=== PATIENT | female | born 1945 | race Hispanic/Latino ===

== ENCOUNTER → 2023-03-06 | Outpatient (CLI) | payer MEDICARE | END | disposition home or self-care (01) | LOC: SHCH 08:04 | PROVIDERS: ATTEND Student in an Organized Health Care Education/Training Program | DX: I34.0 Nonrheumatic mitral (valve) insufficiency (principal); I48.0 Paroxysmal atrial fibrillation; I10 Essential (primary) hypertension; E78.5 Hyperlipidemia, unspecified | CPT/HCPCS: 93306 ==

== ENCOUNTER → 2023-05-12 | Outpatient (CLI) | payer MEDICARE ==
[~2023-05-12] MED LIST: REGADENOSON 0.4 MG/5 ML PF SYG IVP ONE
== END | disposition home or self-care (01) ==
LOC: SHCH 08:59
PROVIDERS: ATTEND Student in an Organized Health Care Education/Training Program
DX: I48.91 Unspecified atrial fibrillation (principal); I50.22 Chronic systolic (congestive) heart failure
CPT/HCPCS: 78452; 96374; 93017; J2785; A9500 ×2

== ENCOUNTER → 2024-04-08 | Outpatient (CLI) | payer MEDICARE | END | disposition home or self-care (01) | LOC: SHCH 13:38 | PROVIDERS: ATTEND Student in an Organized Health Care Education/Training Program | DX: R53.83 Other fatigue (principal) | CPT/HCPCS: 93306 ==

== ENCOUNTER 2025-09-11 08:50 | Inpatient (IN) | payer MEDICARE, MEDICAID ==
[~2025-09-11] VITALS: Ht 157.5 cm; Wt 72.8 kg
[2025-09-11 09:18] LABS: IMMATURE GRANULOCYTE ABSOLUTE 0.05 K/uL (0-1); NUCLEATED RED BLOOD CELLS 0.0 % (0.0-0.19); PLATELET COUNT (AUTO) 390 K/uL (130-400); RED BLOOD CELL COUNT(AUTO) 4.29 MIL/uL (4.00-5.50); RED CELL DISTRIBUTION WIDTH 12.8 % (11.0-15.5); WHITE BLOOD COUNT (AUTO) 8.2 K/uL (4.8-10.8)
[2025-09-11 09:27] LABS: CREATININE 1.3 mg/dL (0.5-1.0); GLOMERULAR FILTR. RATE CALC 42.0 mL/min (>90); GLUCOSE,RANDOM 151.0 mg/dL (70-105); SODIUM SERUM 141.0 mmol/L (136-145); UREA NITROGEN, BLOOD 22.0 mg/dL (7-18)
[2025-09-11 09:31] LABS: ASPARTATE AMINOTRANSFERASE 17.0 U/L (10-37); CREATINE KINASE, TOTAL 31.0 U/L (21-232); TOTAL PROTEIN, SERUM 8.7 g/dL (6.0-8.3)
--- NOTE | 2025-09-11 09:55 | HMCIMG ---
EXAM: CT Abdomen and Pelvis Without IV contrast CLINICAL HISTORY: diffuse abdominal pain TECHNIQUE: Axial computed tomography images of the abdomen and pelvis without intravenous contrast. CONTRAST: No IV contrast. COMPARISON: None provided. FINDINGS: LUNG BASES: The lung bases appear clear. No pleural effusions are seen. LIVER: Unremarkable. GALLBLADDER AND BILE DUCTS: Cholecystectomy. PANCREAS: Unremarkable. SPLEEN: Unremarkable. ADRENAL GLANDS: Unremarkable. KIDNEYS, URETERS, AND BLADDER: Massive distention of the urinary bladder. Gas within urinary bladder could be related to recent instrumentation or infection. Correlate clinically. STOMACH AND BOWEL: Mild inflammatory changes about distal sigmoid colon could be related to sigmoid diverticulitis. Correlate clinically. APPENDIX: No evidence of acute appendicitis on CT examination. PERITONEUM: No free fluid. No free air. LYMPH NODES: No lymphadenopathy is evident. REPRODUCTIVE: 4.3 cm right adnexal cyst. Ultrasound recommended for further evaluation. Hysterectomy. VASCULATURE: No evidence of abdominal aortic aneurysm. BONES: Mild degenerative changes spine. Mild degenerative in the spine. MISCELLANEOUS: Postoperative changes within the left upper quadrant. IMPRESSION: 1. Massive urinary bladder distention with intravesical gas, potentially due to recent instrumentation or infection. 2. Mild inflammatory changes in distal sigmoid colon, possibly related to diverticulitis. 3. 4.3 cm right adnexal cyst. 4. Ultrasound recommended for further evaluation of adnexal cyst. /[place]
[2025-09-11 10:56] LABS: APPEARANCE,URINE TURBID (CLEAR); GLUCOSE, URINE (UA) NEGATIVE (NEGATIVE); LEUKOCYTE ESTERASE ,URINE 75 Leu/uL (NEGATIVE); NITRATE,URINE NEGATIVE (NEGATIVE); OCCULT BLOOD,URINE LARGE (NEGATIVE)
[2025-09-11 10:57] LABS: ADD UA MICROSCOPIC YES
[2025-09-11 11:17] LABS: SQUAMOUS EPITHELIAL CELL,UR Many /HPF (0-2)
--- NOTE | 2025-09-11 11:43 | EKG ---
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
--- NOTE | 2025-09-11 12:28 | HP ---
[facility] PH[facility] Date of Service: Sep 11, 2025 Time of Service: 12:11 HISTORY OF PRESENT ILLNESS: [ ] Admission date 09/11/2025 PCP CC: abdominal pain, abdomen distention This is a 80 year old female that presents in ED with chief complaints of abdominal pain. onset 2 wks. location: suprapubic. severity severe, aggravation positional, alleviating none. Patient reports going to her PCP the collected a urine sample the patient stated she was able to give a small amount of urine when she notice drop of blood. The hematuria has resolved since then. Reports no fever, chills or recurrent of hematuria. In ER a CT abd/pelvis with massive urinary bladder distention with intravesical gas, potentially due to recent instrumentation or infections: ER placed a Garcia cath.drained 800ml, color dark ambrose. UA positive for UTI. Home medications: Vitamin-D weekly, losartan 25 mg p.o. daily, atorvastatin 20 mg at bedtime metoprolol 50 mg daily, Eliquis 5 mg p.o. b.i.d.. The patient was seen in ED she appear comfortable now since the Garcia catheter was placed: continues with dark concentrated urine. She denies abd pain. REVIEW OF SYSTEMS A 12 point ROS was obtained all relevant positive documented otherwise ROS negative PAST MEDICAL HISTORY: [ ] Hyperlipidemia hypertension AFib PAST SURGICAL HISTORY: [ ] cholecystectomy, herniorrhaphy, and most recently in October 2011 she has incisional hernia repair. She has also had hysterectomy. PAST SOCIAL HISTORY: [ ] She denies smoking or use of alcohol or any illicit drugs FAMILY HISTORY: [ ] Diabetes Coded Allergies: No Known Drug Allergies (Verified Allergy, 03/27/12) PHYSICAL EXAM GENERAL APPEARANCE: The patient is awake, alert, and oriented, in no acute cardiopulmonary distress. NEUROLOGICAL: Cranial nerves II-XII grossly intact. Motor is 5/5 in bilateral upper and lower extremities proximal to distal. No sensory deficits. HEENT: Face is symmetric. Pupils are equal and reactive. Extraocular movements are intact. NECK: Supple. No JVD. No thyromegaly. No submental, submandibular, pre-/postauricular, occipital or supraclavicular lymphadenopathy. CHEST: Normal chest expansion. No Telemetry. LUNGS: Absence of any rales, rhonchi or any wheezing. CARDIOVASCULAR: Regular. S1 and S2 normal. No appreciable rubs, murmurs or gallops. ABDOMEN: Soft, nontender, and nondistended. There is no rebound, voluntary guarding, or rigidity. : Deferred. No Garcia. EXTREMITIES: Non-edematous and not cyanotic. No clubbing. Good capillary refill. SKIN: No skin breakdown. Vital Sign (Last 24 Hours) 09/11/25 09:07 Temp 98.2 Pulse 90 Resp 20 B/P (MAP) 152/81 Pulse Ox 99 O2 Delivery Room Air* O2 Flow Rate 0 FiO2 21 LABS: Laboratory: Test 09/11/25 09:11 09/11/25 09:00 Range/Units White Blood Count 8.2 4.8-10.8 K/uL Red Blood Count 4.29 4.00-5.50 MIL/uL Hemoglobin 14.4 12.0-16.0 g/dL Hematocrit 41.7 36-48 % Mean Corpuscular Volume 97.2 79-99 fL Mean Corpuscular Hemoglobin 33.6 H 27.0-33.0 pg Mean Corpuscular Hemoglobin Concent 34.5 32.0-36.0 g/dL Red Cell Distribution Width 12.8 11.0-15.5 % Platelet Count 390 130-400 K/uL Mean Platelet Volume 9.7 7.5-10.5 fL Immature Granulocyte % (Auto) 0.6 0-1 % Neutrophils (%) (Auto) 59.3 40.0-77.0 % Lymphocytes (%) (Auto) 29.2 21.0-51.0 % Monocytes (%) (Auto) 9.1 3.0-13.0 % Eosinophils (%) (Auto) 1.1 0.0-8.0 % Basophils (%) (Auto) 0.7 0.0-5.0 % Neutrophils # (Auto) 4.9 1.8-7.7 K/uL Lymphocytes # (Auto) 2.4 1.0-4.8 K/uL Monocytes # (Auto) 0.8 0.1-1.0 K/uL Eosinophils # (Auto) 0.09 0.00-0.70 K/uL Basophils # (Auto) 0.06 0.00-0.20 K/uL Absolute Immature Granulocyte (auto 0.05 0-1 K/uL Nucleated Red Blood Cells 0.0 0.0-0.19 % Sodium Level 141 136-145 mmol/L Potassium Level 3.7 3.5-5.1 mmol/L Chloride Level 103 101-111 mmol/L Carbon Dioxide Level 26 21-32 mmol/L Blood Urea Nitrogen 22 H 7-18 mg/dL Creatinine 1.3 H 0.5-1.0 mg/dL Glomerular Filtration Rate Calc 42 >90 mL/min Random Glucose 151 H 70-105 mg/dL Total Calcium 9.4 8.5-10.1 mg/dL Total Bilirubin 0.6 0.2-1.0 mg/dL Direct Bilirubin 0.2 0.0-0.3 mg/dL Aspartate Amino Transf (AST/SGOT) 17 10-37 U/L Alanine Aminotransferase (ALT/SGPT) 25 12-78 U/L Alkaline Phosphatase 105 50-136 U/L Total Creatine Kinase 31 # 21-232 U/L Troponin I High Sensitivity 5 4-50 ng/L Total Protein 8.7 H 6.0-8.3 g/dL Albumin 3.6 3.5-5.0 g/dL Lipase 82 H 16-77 U/L Urine Color BROWN YELLOW Urine Appearance TURBID CLEAR Urine pH 5.5 5.0-8.0 Urine Specific [place] 1.016 1.001-1.031 Urine Protein 30 H NEGATIVE mg/dL Urine Glucose (UA) NEGATIVE NEGATIVE mg/dL Urine Ketones NEGATIVE NEGATIVE mg/dL Urine Occult Blood LARGE H NEGATIVE Urine Nitrate NEGATIVE NEGATIVE Urine Bilirubin NEGATIVE NEGATIVE mg/dL Urine Urobilinogen 0.2 0.2-1.0 mg/dL Urine Leukocyte Esterase 75 H NEGATIVE [place]/uL Urine RBC TNTC H 0-1 /HPF Urine WBC 11-25 H 0-1 /HPF Urine Squamous Epithelial Cells Many H 0-2 /HPF Urine Bacteria Rare None Seen /HPF DIAGNOSTICS / RADIOLOGY: [ ] REASON: diffuse abdominal pain ORDERING PHYSICIAN: YADI CORREA MD PROCEDURE: ABD PELVWO - CT ABD/PEL WO CON RENAL/APPY EXAM: CT Abdomen and Pelvis Without IV contrast CLINICAL HISTORY: diffuse abdominal pain TECHNIQUE: Axial computed tomography images of the abdomen and pelvis without intravenous contrast. CONTRAST: No IV contrast. COMPARISON: None provided. FINDINGS: LUNG BASES: The lung bases appear clear. No pleural effusions are seen. LIVER: Unremarkable. GALLBLADDER AND BILE DUCTS: Cholecystectomy. PANCREAS: Unremarkable. SPLEEN: Unremarkable. ADRENAL GLANDS: Unremarkable. KIDNEYS, URETERS, AND BLADDER: Massive distention of the urinary bladder. Gas within urinary bladder could be related to recent instrumentation or infection. Correlate clinically. STOMACH AND BOWEL: Mild inflammatory changes about distal sigmoid colon could be related to sigmoid diverticulitis. Correlate clinically. APPENDIX: No evidence of acute appendicitis on CT examination. PERITONEUM: No free fluid. No free air. LYMPH NODES: No lymphadenopathy is evident. REPRODUCTIVE: 4.3 cm right adnexal cyst. Ultrasound recommended for further evaluation. Hysterectomy. VASCULATURE: No evidence of abdominal aortic aneurysm. BONES: Mild degenerative changes spine. Mild degenerative in the spine. MISCELLANEOUS: Postoperative changes within the left upper quadrant. IMPRESSION: 1. Massive urinary bladder distention with intravesical gas, potentially due to recent instrumentation or infection. 2. Mild inflammatory changes in distal sigmoid colon, possibly related to diverticulitis. 3. 4.3 cm right adnexal cyst. 4. Ultrasound recommended for further evaluation of adnexal cyst. ASSESSMENT: UTI failed outpatient treatment POA Distended bladder requiring Garcia catheter insertion POA urinary retention POA DOMI on CRF POA hypercoagulable state secondary to afib on Eliquis POA A fibb on Eliquis POA Allergies no known drug allergies PLAN: Admit: Medical-surgical floor condition: Guarded Status: Full code IVF: NS at 75 mL/hour Antibiotics: Rocephin 1 g every 24 hours Urinary retention Flomax 0.4 mg daily Microbiology urine cultures in process Labs cbc, cmp, mag+ Replace electrolytes as needed as per protocol to keep potassium above 4.0 magnesium 2.0. Home medications pending to be reviewed by RN nurse. PRN: MEDICATIONS Tylenol 650 mg po every 4 hrs for fever Zorac 4 mg IV every 6 hrs for n/v Hydralazine 5 mg IV every 4 hrs systolic pressure > 160 bowel regiment: Senna one tab PO BID PRN constipation Pain management: Supportive measures: DVT ppx, GI ppx all questions answered time spent: > 35 min Supervising MD: Dr.Ellis Hagen c/d This document was generated in part using voice recognition software, occasional wrong word or sound alike substitutions may have occurred due to the inherent limitations of voice recognition software. Read the chart carefully and recognize using context, where the substitutions have occurred. Although every effort was made to edit the content, rubber trimmer and typing errors may occur [employer]ANNING 1. Which of the following were discussed? Hospice Care - Yes / No Therapeutic options - Yes / No Advance Directives - Yes / No Other discussions - 2. Discussed with who? 3. Voluntary nature of this service was explained to the patient? Yes / No 4. Amount of time spent - 5. Reviewed by Physician? (if this service was performed by NPP) Yes / No ATTESTATION BY PHYSICIAN I have seen and examined the patient. I reviewed the documentation, medical decision making, and treatment plan as noted by the mid-level provider above. I agree with the findings and plan of care. MARIANA NGUYEN MD, [facility] Sep 11, 2025 12:27
[2025-09-11] MEDS: 0.9%NACL 1000ML 1,000 ML IV SCH (12:30)
[2025-09-11] MEDS ORDERED: SENNOSIDES 8.6 MG TABLET PO PRN (12:30)
[2025-09-11] MEDS ORDERED: PoTASSium chloRIDE 20MEQ ER 20 MEQ ERTAB PO PRN (12:30)
[2025-09-11] MEDS ORDERED: PoTASSium chl 10% ELIXIR 20MEQ 20 MEQ/15 ML UDCUP PO PRN (12:30)
--- NOTE | 2025-09-11 13:50 | ERN ---
ED Note History of Present Illness Stated Complaint: ABDOMINAL PAIN Chief Complaint: Abdominal Pain Time Seen by MD: 08:59 Dictation: 80-year-old female presenting to the emergency department with pain with urination and nausea has not been feeling well over the past few days was seen by primary care doctor and placed on Augmentin for urinary tract infection no fevers but also having generalized weakness. Allergies: Coded Allergies: No Known Drug Allergies (Verified Allergy, 03/27/12) Past Medical History Past Medical History: Diabetes-Type II Surgical History: Other Surgical History Other: ABDOMINAL SURGERY Review of System Dictation Constitutional: Negative for fever,chills, and weight loss Eyes: Negative for injury, pain,redness, and discharge ENT: Negative for injury,pain or swelling Cardiovascular: Negative for chest pain, palpitations, and edema Respiratory: Negative for shortness of breath, cough, and wheezing, Abdomen/GI: Negative for abdominal pain, nausea, vomiting, diarrhea, and constipation Back: Negative for injury and pain : Per HPI MS/Extremity: Negative for injury and deformity Skin: Negative for rash, and discoloration Neuro: Per HPI Initial Vital Sign VS Vital Signs Date Time Temp Pulse Resp B/P (MAP) Pulse Ox O2 Delivery O2 Flow Rate FiO2 09/11/25 08:51 97.9 77 16 147/80 97 Room Air 09/11/25 09:07 0 21 Physical Exam Dictation General: awake, alert, appears weak Head/Face: Normocephalic, atraumatic Eyes: PERRL, EOMI, vision at baseline ENT: oral cavity clear, TMs clear, no signs of infection Neck: Trachea midline, supple, no nuchal rigidity Cardiovascular: RRR, normal S1/S2, No MRGs, no JVD Respiratory: CTAB, no respiratory distress, No rales or wheezes Abdomen: Soft, non-tender, non-distended, normal bowel sounds, no guarding or rebound. Skin: Warm, dry, normal turgor, no rash MS/Extremity: Pulses equal, no cyanosis, neurovascular intact, FROM Neuro: COAx4, GCS 15, strength 5/5, CN 2-12 intact, normal cerebellar exam, normal gait, Psych: Normal behavior, mood, and affect normal Results (Laboratory/Radiology) Laboratory/Radiology Laboratory Tests Test 09/11/25 09:00 09/11/25 09:11 Urine Color BROWN (YELLOW) Urine Appearance TURBID (CLEAR) Urine pH 5.5 (5.0-8.0) Urine Specific [place] 1.016 (1.001-1.031) Urine Protein 30 mg/dL (NEGATIVE) H Urine Glucose (UA) NEGATIVE mg/dL (NEGATIVE) Urine Ketones NEGATIVE mg/dL (NEGATIVE) Urine Occult Blood LARGE (NEGATIVE) H Urine Nitrate NEGATIVE (NEGATIVE) Urine Bilirubin NEGATIVE mg/dL (NEGATIVE) Urine Urobilinogen 0.2 mg/dL (0.2-1.0) Urine Leukocyte Esterase 75 Tyron/uL (NEGATIVE) H Urine RBC TNTC /HPF (0-1) H Urine WBC 11-25 /HPF (0-1) H Urine Squamous Epithelial Cells Many /HPF (0-2) H Urine Bacteria Rare /HPF (None Seen) White Blood Count 8.2 K/uL (4.8-10.8) Red Blood Count 4.29 MIL/uL (4.00-5.50) Hemoglobin 14.4 g/dL (12.0-16.0) Hematocrit 41.7 % (36-48) Mean Corpuscular Volume 97.2 fL (79-99) Mean Corpuscular Hemoglobin 33.6 pg (27.0-33.0) H Mean Corpuscular Hemoglobin Concent 34.5 g/dL (32.0-36.0) Red Cell Distribution Width 12.8 % (11.0-15.5) Platelet Count 390 K/uL (130-400) Mean Platelet Volume 9.7 fL (7.5-10.5) Immature Granulocyte % (Auto) 0.6 % (0-1) Neutrophils (%) (Auto) 59.3 % (40.0-77.0) Lymphocytes (%) (Auto) 29.2 % (21.0-51.0) Monocytes (%) (Auto) 9.1 % (3.0-13.0) Eosinophils (%) (Auto) 1.1 % (0.0-8.0) Basophils (%) (Auto) 0.7 % (0.0-5.0) Neutrophils # (Auto) 4.9 K/uL (1.8-7.7) Lymphocytes # (Auto) 2.4 K/uL (1.0-4.8) Monocytes # (Auto) 0.8 K/uL (0.1-1.0) Eosinophils # (Auto) 0.09 K/uL (0.00-0.70) Basophils # (Auto) 0.06 K/uL (0.00-0.20) Absolute Immature Granulocyte (auto 0.05 K/uL (0-1) Nucleated Red Blood Cells 0.0 % (0.0-0.19) Sodium Level 141 mmol/L (136-145) Potassium Level 3.7 mmol/L (3.5-5.1) Chloride Level 103 mmol/L (101-111) Carbon Dioxide Level 26 mmol/L (21-32) Blood Urea Nitrogen 22 mg/dL (7-18) H Creatinine 1.3 mg/dL (0.5-1.0) H Glomerular Filtration Rate Calc 42 mL/min (>90) Random Glucose 151 mg/dL (70-105) H Total Calcium 9.4 mg/dL (8.5-10.1) Total Bilirubin 0.6 mg/dL (0.2-1.0) Direct Bilirubin 0.2 mg/dL (0.0-0.3) Aspartate Amino Transf (AST/SGOT) 17 U/L (10-37) Alanine Aminotransferase (ALT/SGPT) 25 U/L (12-78) Alkaline Phosphatase 105 U/L (50-136) Total Creatine Kinase 31 U/L (21-232) # Troponin I High Sensitivity 5 ng/L (4-50) Total Protein 8.7 g/dL (6.0-8.3) H Albumin 3.6 g/dL (3.5-5.0) Lipase 82 U/L (16-77) H Labs Reviewed?: Yes EKG: (+) NSR, (+) rhythm, (+) nonspecific ST T wave chg, (+) unchanged ED Course ED Course Orders Procedure Category Date Status Time 12 Lead Ekg Tracing- EKG 09/11/25 Complete Technical 09:07 Basic Metabolic Panel LAB 09/11/25 Complete 09:07 Cbc With Differential LAB 09/11/25 Complete 09:07 Hepatic Function Panel LAB 09/11/25 Complete 09:07 Creatine Kinase, Total LAB 09/11/25 Complete 09:07 Lipase LAB 09/11/25 Complete 09:07 Troponin I High LAB 09/11/25 Complete Sensitivity 09:07 Urinalysis Profile LAB 09/11/25 Complete 09:07 Ct Abd/Pel Wo Con CT 09/11/25 Resulted Renal/Appy 09:07 Nurse Driven Garcia LEA 09/11/25 In Process Removal Pro 10:38 Culture Urine MARIA DE JESUS 09/11/25 In Process 11:13 Admit Orders ADM 09/11/25 Transmitted 12:12 Apply Scds CPOE 09/11/25 Transmitted 12:12 Consistent Carb DIET 09/11/25 Transmitted Lunch Ceftriaxone 1g Vial PHA 09/11/25 In Process (Rocephine 1g Inj) 12:30 Acetaminophen 325 Tab PHA 09/11/25 In Process (Tylenol 325mg Tab 12:30 Ondansetron 4mg Inj PHA 09/11/25 In Process (Zofran 4mg Inj) 12:30 Sennosides (Senna) PHA 09/11/25 In Process 12:30 Hydralazine 20mg Inj PHA 09/11/25 In Process (Apresoline 20mg In 12:30 Famotidine 20mg Tab PHA 09/12/25 In Process (Pepcid 20mg Tab) 09:00 0.9%Nacl 1000ml (Ns PHA 09/11/25 In Process 1000ml) 12:30 Magnesium 2gm Premix PHA 09/11/25 In Process 50ml (Magnesium 2gm 12:30 Initiate Po LEA 09/11/25 In Process Hypokalemia Protoc 12:12 Potassium Chloride PHA 09/11/25 In Process 20meq/100ml ([place] 12:30 Potassium Chl 10% PHA 09/11/25 In Process Elixir 20meq (Kcl 10% 12:30 Potassium Chloride PHA 09/11/25 In Process 20meq Er (K-Dur/Klor- 12:30 Notify Physician If CPOE 09/11/25 Transmitted There Is 12:12 Notify Md On The Next CPOE 09/11/25 Transmitted 12:12 Notify Md On The CPOE 09/11/25 Transmitted Next(Cont.) 12:12 *Nursing CPOE 09/11/25 Transmitted Communication: 12:12 Current Medications Medications (Trade) Dose Ordered Sig/Adela Route PRN Reason Start Time Stop Time Status Last Admin Dose Admin Acetaminophen (TYLenol 325MG TAB) 650 mg Q4H PRN PO TEMPERATURE GREATER THAN 101.5 09/11/25 12:30 10/11/25 12:29 Ceftriaxone Sodium (ROCEphine 1G INJ) 1 gm Q24H IVPB 09/11/25 12:30 09/21/25 12:29 Famotidine (Pepcid 20mg Tab) 20 mg Q48H PO 09/12/25 09:00 10/12/25 08:59 Hydralazine HCl (APRESOLine 20MG INJ) 5 mg Q4H PRN IV ADMINISTER FOR SBP > 160 09/11/25 12:30 10/11/25 12:29 Magnesium Sulfate 50 ml @ 0 mls/hr PROTOCOL PRN IV low mag level 09/11/25 12:30 10/11/25 12:29 Ondansetron HCl (zoFRAN 4MG INJ) 4 mg Q6H PRN IVP NAUSEA/VOMITING 09/11/25 12:30 10/11/25 12:29 Potassium Chloride 100 ml @ 100 mls/hr AD PRN IV POTASSIUM PROTOCOL 09/11/25 12:30 10/11/25 12:29 Potassium Chloride (K-Dur/Klor-Con 20meq) 20 meq AD PRN PO POTASSIUM PROTOCOL 09/11/25 12:30 10/11/25 12:29 Potassium Chloride (KCl 10% Elixir 20meq/15ml) 20 meq AD PRN PO POTASSIUM PROTOCOL 09/11/25 12:30 10/11/25 12:29 Sennosides (Senna) 1 tab BID PRN PO CONSTIPATION 09/11/25 12:30 10/11/25 12:29 Sodium Chloride 1,000 ml @ 75 mls/hr [id number] IV 09/11/25 12:30 10/11/25 12:29 Vital Signs Date Time Temp Pulse Resp B/P (MAP) Pulse Ox O2 Delivery O2 Flow Rate FiO2 09/11/25 09:07 98.2 90 20 152/81 99 Room Air* 0 21 09/11/25 08:51 97.9 77 16 147/80 97 Room Air Medical Decision Making MDM MDM: Differential diagnosis: Rationale: Tests considered and ordered secondary to shared decision making include: labs, ECG and radiology Previous outside records reviewed: Old ER visits. Risk of complication and/or morbidity or mortality of patient management: None Medications-Per medication reconciliation Need for hospitalization: Patient does meet criteria for hospitalization. Need for emergency major/minor surgery: No There are no social concerns with this patient. Prescription drug management Prescriptions will include symptomatic care Patient's prior external medical records from other ER visits were reviewed by me as indicated. Prior testing and results from previous visits were reviewed. Prior tests were taken into account with medical decision making and resource utilization, independent historian/historians were used to obtain complete medical history. I independently interpreted the test that were performed, results were reviewed by me and considered findings on radiology if ordered. Medical management and examination interpretation discussions were had by me with other qualified healthcare professionals as indicated for the patient's care. 80-year-old female with UTI failure of outpatient antibiotic therapy abdominal distention secondary to bladder distention/urinary retention Garcia placed placed on antibiotics admitting for further care and treatment. DX & DISP Disposition: Inpatient Departure Impression: Primary Impression: Weakness Additional Impression: Acute UTI Condition: Stable Referrals: AQUILES SMITH M.D. (PCP) YADI CORREA MD Sep 11, 2025 13:50
--- NOTE | 2025-09-11 13:57 | NUR ---
DCP:HOME Pt currently lives at home with her son. Pt uses a cane at home to ambulate. Pt also has a provider that goes to the home 3 hrs a day to assist with all ADLs, home management, and meals. PCP id Dr. Stephanie Sheffield and uses [facility] for any RX needs. At DC pt will want to go home and family can assist with transportation.
[2025-09-11 22:05] VITALS: BP 138/74; PULSE 74; RESP 17; TEMP 98; O2SAT 97
[2025-09-11] MEDS ORDERED: APIX5TAB PO (22:53)
[2025-09-11] MEDS ORDERED: PRIM50TA23 PO (22:53)
[2025-09-11] MEDS ORDERED: ATOR10 PO (22:53)
[2025-09-11] MEDS ORDERED: METO-391 PO (22:53)
[2025-09-11] MEDS ORDERED: ERGO500093 PO (22:53)
[2025-09-11] MEDS ORDERED: LOSA25TA41 PO (22:53)
[2025-09-12] VITALS (8 sets, daily range): BP systolic 106–133; BP diastolic 46–64; PULSE 75–91; RESP 16–20; TEMP 97.4–98.3; O2SAT 98–99
[2025-09-12 04:56] LABS: IMMATURE GRANULOCYTE ABSOLUTE 0.04 K/uL (0-1); NUCLEATED RED BLOOD CELLS 0.0 % (0.0-0.19); PLATELET COUNT (AUTO) 285 K/uL (130-400); RED BLOOD CELL COUNT(AUTO) 3.71 MIL/uL (4.00-5.50); RED CELL DISTRIBUTION WIDTH 12.6 % (11.0-15.5); WHITE BLOOD COUNT (AUTO) 6.8 K/uL (4.8-10.8)
[2025-09-12 05:03] LABS: ASPARTATE AMINOTRANSFERASE 17.0 U/L (10-37); CREATININE 0.9 mg/dL (0.5-1.0); GLOMERULAR FILTR. RATE CALC 65.0 mL/min (>90); GLUCOSE,RANDOM 127.0 mg/dL (70-105); SODIUM SERUM 139.0 mmol/L (136-145); TOTAL PROTEIN, SERUM 6.9 g/dL (6.0-8.3); UREA NITROGEN, BLOOD 19.0 mg/dL (7-18)
[2025-09-12] MEDS: MAGNESIUM 2GM PREMIX 50ML 50 ML IV PRN (05:25)
[2025-09-12] MEDS: FAMOTIDINE 20MG TAB PO SCH (08:24)
[2025-09-12] MEDS: ERGOCALCIFEROL (VITAMIN D2) 50,000 UNIT CAPSULE PO SCH (11:04)
[2025-09-12] MEDS: PRIMIDONE 50 MG TAB PO SCH (11:04)
--- NOTE | 2025-09-12 14:27 | PN ---
[facility] PROGRESS NOTE Date of Service: Sep 12, 2025 Time of Service: 14:19 SUBJECTIVE: 09/12 patient remains admitted to the medical floor, the time of my visit she is comfortably in bed, alert oriented x3, getting IV fluids and IV antibiotics, no chest pain, shortness shortness for breath, no nausea, no vomiting, no abdominal discomfort. The results of the CT of the abdomen reviewed in detail, all questions answered. Understood the information provided. BP 120/60, afebrile, saturating normal on room air. Magnesium level of 1.4. Replace IV per protocol to keep magnesium level greater than two. Continue broad-spectrum antibiotics, follow results of urine culture, adjust antibiotics as needed. Follow a.m. labs. Results of CT of the abdomen reviewed, reported as follows: IMPRESSION: 1. Massive urinary bladder distention with intravesical gas, potentially due to recent instrumentation or infection. 2. Mild inflammatory changes in distal sigmoid colon, possibly related to diverticulitis. 3. 4.3 cm right adnexal cyst. 4. Ultrasound recommended for further evaluation of adnexal cyst. /smsPREP OF SYSTEMS A 12 point ROS was obtained all relevant positive documented otherwise ROS negative PHYSICAL EXAM GENERAL APPEARANCE: The patient is awake, alert, and oriented, in no acute cardiopulmonary distress. NEUROLOGICAL: Cranial nerves II-XII grossly intact. Motor is 5/5 in bilateral upper and lower extremities proximal to distal. No sensory deficits. HEENT: Face is symmetric. Pupils are equal and reactive. Extraocular movements are intact. NECK: Supple. No JVD. No thyromegaly. No submental, submandibular, pre- /postauricular, occipital or supraclavicular lymphadenopathy. CHEST: Normal chest expansion. No Telemetry. LUNGS: Absence of any rales, rhonchi or any wheezing. CARDIOVASCULAR: Regular. S1 and S2 normal. No appreciable rubs, murmurs or gallops. ABDOMEN: Soft, nontender, and nondistended. There is no rebound, voluntary guarding, or rigidity. : Deferred. No Garcia. EXTREMITIES: Non-edematous and not cyanotic. No clubbing. Good capillary refill. SKIN: No skin breakdown. Vital Signs (last 8hr) Date Time Temp Pulse Resp B/P (MAP) Pulse Ox O2 Delivery O2 Flow Rate FiO2 09/12/25 12:00 98.2 75 16 128/60 99 Room Air 09/12/25 08:00 97.3 81 16 116/62 99 Room Air LABS: Laboratory: Test 09/12/25 11:46 09/12/25 04:22 09/11/25 09:11 09/11/25 09:00 Range/Units Whole Blood Glucose 130 H 70-110 MG/DL White Blood Count 6.8 4.8-10.8 K/uL Red Blood Count 3.71 L 4.00-5.50 MIL/uL Hemoglobin 12.1 12.0-16.0 g/dL Hematocrit 36.4 36-48 % Mean Corpuscular Volume 98.1 79-99 fL Mean Corpuscular Hemoglobin 32.6 27.0-33.0 pg Mean Corpuscular Hemoglobin Concent 33.2 32.0-36.0 g/dL Red Cell Distribution Width 12.6 11.0-15.5 % Platelet Count 285 # 130-400 K/uL Mean Platelet Volume 10.0 7.5-10.5 fL Immature Granulocyte % (Auto) 0.6 0-1 % Neutrophils (%) (Auto) 60.5 40.0-77.0 % Lymphocytes (%) (Auto) 27.7 21.0-51.0 % Monocytes (%) (Auto) 9.2 3.0-13.0 % Eosinophils (%) (Auto) 1.3 0.0-8.0 % Basophils (%) (Auto) 0.7 0.0-5.0 % Neutrophils # (Auto) 4.1 1.8-7.7 K/uL Lymphocytes # (Auto) 1.9 1.0-4.8 K/uL Monocytes # (Auto) 0.6 0.1-1.0 K/uL Eosinophils # (Auto) 0.09 0.00-0.70 K/uL Basophils # (Auto) 0.05 0.00-0.20 K/uL Absolute Immature Granulocyte (auto 0.04 0-1 K/uL Nucleated Red Blood Cells 0.0 0.0-0.19 % Sodium Level 139 136-145 mmol/L Potassium Level 3.9 3.5-5.1 mmol/L Chloride Level 106 101-111 mmol/L Carbon Dioxide Level 25 21-32 mmol/L Blood Urea Nitrogen 19 H 7-18 mg/dL Creatinine 0.9 0.5-1.0 mg/dL Glomerular Filtration Rate Calc 65 >90 mL/min Random Glucose 127 H 70-105 mg/dL Total Calcium 8.5 8.5-10.1 mg/dL Magnesium Level 1.40 L 1.80-2.40 mg/dL Total Bilirubin 0.4 # 0.2-1.0 mg/dL Aspartate Amino Transf (AST/SGOT) 17 10-37 U/L Alanine Aminotransferase (ALT/SGPT) 22 12-78 U/L Alkaline Phosphatase 83 50-136 U/L Total Protein 6.9 # 6.0-8.3 g/dL Albumin 2.9 L 3.5-5.0 g/dL Direct Bilirubin 0.2 0.0-0.3 mg/dL Total Creatine Kinase 31 # 21-232 U/L Troponin I High Sensitivity 5 4-50 ng/L Lipase 82 H 16-77 U/L Urine Color BROWN YELLOW Urine Appearance TURBID CLEAR Urine pH 5.5 5.0-8.0 Urine Specific [place] 1.016 1.001-1.031 Urine Protein 30 H NEGATIVE mg/dL Urine Glucose (UA) NEGATIVE NEGATIVE mg/dL Urine Ketones NEGATIVE NEGATIVE mg/dL Urine Occult Blood LARGE H NEGATIVE Urine Nitrate NEGATIVE NEGATIVE Urine Bilirubin NEGATIVE NEGATIVE mg/dL Urine Urobilinogen 0.2 0.2-1.0 mg/dL Urine Leukocyte Esterase 75 H NEGATIVE [place]/uL Urine RBC TNTC H 0-1 /HPF Urine WBC 11-25 H 0-1 /HPF Urine Squamous Epithelial Cells Many H 0-2 /HPF Urine Bacteria Rare None Seen /HPF Current Medications Medications (Trade) Dose Ordered Sig/Adela Route PRN Reason Start Time Stop Time Status Last Admin Dose Admin Acetaminophen (TYLenol 325MG TAB) 650 mg Q4H PRN PO TEMPERATURE GREATER THAN 101.5 09/11/25 12:30 10/11/25 12:29 Apixaban (EliquIS) 5 mg BID PO 09/12/25 10:30 10/12/25 10:29 09/12/25 11:05 5 MG Atorvastatin Calcium (LIPItor 10MG) 10 mg HS PO 09/12/25 10:30 10/12/25 10:29 09/12/25 11:05 10 MG Ceftriaxone Sodium (ROCEphine 1G INJ) 1 gm Q24H IVPB 09/11/25 12:30 09/21/25 12:29 09/12/25 12:31 1 GM Ergocalciferol (Drisdol) 50,000 unit QWEEK PO 09/12/25 10:30 10/12/25 10:29 09/12/25 11:04 50,000 UNIT Famotidine (Pepcid 20mg Tab) 20 mg Q48H PO 09/12/25 09:00 10/12/25 08:59 09/12/25 08:24 20 MG Hydralazine HCl (APRESOLine 20MG INJ) 5 mg Q4H PRN IV ADMINISTER FOR SBP > 160 09/11/25 12:30 10/11/25 12:29 Losartan Potassium (CozAAR 25MG TAB) 25 mg DAILY PO 09/13/25 09:00 10/13/25 08:59 Magnesium Sulfate 50 ml @ 0 mls/hr PROTOCOL IV 09/12/25 10:30 10/12/25 10:29 Magnesium Sulfate 50 ml @ 0 mls/hr PROTOCOL PRN IV low mag level 09/11/25 12:30 09/12/25 10:23 DC 09/12/25 05:25 25 MLS/HR Metoprolol Succinate (TopROL XL) 50 mg DAILYDINNER PO 09/12/25 17:00 10/12/25 16:59 Metronidazole/ Sodium Chloride (flaGYL) 500 mg Q8H IV 09/12/25 10:30 09/22/25 10:29 09/12/25 11:04 500 MG Ondansetron HCl (zoFRAN 4MG INJ) 4 mg Q6H PRN IVP NAUSEA/VOMITING 09/11/25 12:30 10/11/25 12:29 Potassium Chloride 100 ml @ 100 mls/hr AD PRN IV POTASSIUM PROTOCOL 09/11/25 12:30 10/11/25 12:29 Potassium Chloride (K-Dur/Klor-Con 20meq) 20 meq AD PRN PO POTASSIUM PROTOCOL 09/11/25 12:30 10/11/25 12:29 Potassium Chloride (KCl 10% Elixir 20meq/15ml) 20 meq AD PRN PO POTASSIUM PROTOCOL 09/11/25 12:30 10/11/25 12:29 Primidone (Mysoline) 50 mg BID PO 09/12/25 10:30 10/12/25 10:29 09/12/25 11:04 50 MG Sennosides (Senna) 1 tab BID PRN PO CONSTIPATION 09/11/25 12:30 10/11/25 12:29 Sodium Chloride 1,000 ml @ 75 mls/hr [id number] IV 09/11/25 12:30 10/11/25 12:29 09/12/25 01:20 75 MLS/HR DIAGNOSTICS / RADIOLOGY: [ ] ASSESSMENT: UTI failed outpatient treatment POA Distended bladder requiring Garcia catheter insertion POA urinary retention POA DOMI on CRF POA hypercoagulable state secondary to afib on Eliquis POA A fibb on Eliquis POA Possible acute diverticulitis of the sigmoid colon PLAN: patient remains admitted to the medical floor, the time of my visit she is comfortably in bed, alert oriented x3, getting IV fluids and IV antibiotics, no chest pain, shortness shortness for breath, no nausea, no vomiting, no abdominal discomfort. The results of the CT of the abdomen reviewed in detail, all questions answered. Understood the information provided. BP 120/60, afebrile, saturating normal on room air. Magnesium level of 1.4. Replace IV per protocol to keep magnesium level greater than two. Continue broad-spectrum antibiotics, follow results of urine culture, adjust antibiotics as needed. Follow a.m. labs. Results of CT of the abdomen reviewed, reported as follows: IMPRESSION: 1. Massive urinary bladder distention with intravesical gas, potentially due to recent instrumentation or infection. 2. Mild inflammatory changes in distal sigmoid colon, possibly related to diverticulitis. 3. 4.3 cm right adnexal cyst. 4. Ultrasound recommended for further evaluation of adnexal cyst. NEURO: Minimize central acting medications as possible. Fall Precautions. Well lighted room through the day and minimize interruptions through the night to prevent acute delirium. PULMONARY: Supplemental 02 as needed BiPAP as necessary, for respiratory distress Titrate Fio2 to keep Spo2 > or = 90% DuoNebs and CPT as needed IS hourly while awake for pulmonary hygiene prn Out of bed to chair as tolerated Maintain aspiration precautions at all times CARDIOVASCULAR: Follow hemodynamics. Vital signs per facility protocol GI & NUTRITION: Continue nutritional support Aspirations precautions Prokinetic agents and laxatives as needed KIDNEYS & ELECTROLYTES: Strict monitoring of intake and output Daily weights Avoid nephrotoxic agents Monitor electrolytes and replace as needed Goal urine output of 30mL/hr or 0.5mL/kg/hr Medications to be dosed according to renal function. Avoid contrast if possible ENDOCRINE: Maintain blood glucose between 100-180 at all times. Insulin sliding scale for blood glucose management Hypoglycemia and hyperglycemia protocol in place INFECTIOUS DISEASE: Trend temperature, WBC and procalcitonin level Follow cultures, deescalate antibiotics as soon as possible. Panculture if new onset fever HEMATOLOGY & COAGULATION: Monitor H&H. Keep Hgb > 7 Transfuse 1 unit of PRBC for Hgb < 7 Transfuse 1 pack of platelets of platelets < 20, 000 Watch for any signs and symptoms of bleeding SKIN: Pressure ulcer prevention per facility protocol Specialty mattress as needed ORTHO/REHAB Continue PT/OT PRN: MEDICATIONS Tylenol 650 mg po every 4 hrs for fever zofran 4 mg IV every 6 hrs for n/v Hydralazine 5 mg IV every 4 hrs systolic pressure > 160 bowel regiment: lactulose 20 gm PO BID PRN constipation Supportive measures: Continue GI and DVT prophylaxis Disposition: Pending improvement in clinical condition All questions answered time spent: > 35 min MARIANA NGUYEN MD Sep 12, 2025 14:27
[2025-09-13] MEDS: MAGNESIUM 2GM PREMIX 50ML 50 ML IV SCH (02:58)
[2025-09-13 04:00] VITALS: BP 116/74; PULSE 89; RESP 16; TEMP 97.5
[2025-09-13 05:03] LABS: NUCLEATED RED BLOOD CELLS 0.0 % (0.0-0.19); PLATELET COUNT (AUTO) 319.0 K/uL (130-400); RED BLOOD CELL COUNT(AUTO) 3.68 MIL/uL (4.00-5.50); RED CELL DISTRIBUTION WIDTH 12.5 % (11.0-15.5); WHITE BLOOD COUNT (AUTO) 5.8 K/uL (4.8-10.8)
[2025-09-13 05:33] LABS: CREATININE 1.1 mg/dL (0.5-1.0); GLOMERULAR FILTR. RATE CALC 51.0 mL/min (>90); GLUCOSE,RANDOM 184.0 mg/dL (70-105); SODIUM SERUM 138.0 mmol/L (136-145); TOTAL PROTEIN, SERUM 7.0 g/dL (6.0-8.3); UREA NITROGEN, BLOOD 15.0 mg/dL (7-18)
[2025-09-13 05:34] LABS: ASPARTATE AMINOTRANSFERASE 778.0 U/L (10-37)
[2025-09-13 06:23] LABS: TOTAL PROTEIN, SERUM 6.4 g/dL (6.0-8.3)
[2025-09-13 06:31] LABS: ASPARTATE AMINOTRANSFERASE 770.0 U/L (10-37)
[2025-09-13 08:00] VITALS: BP 140/77; PULSE 77; RESP 18; TEMP 97.2
[2025-09-13 09:19] VITALS: O2SAT 99
[2025-09-13 10:10] LABS: GAMMA GLUTAMYL TRANSFERASE 455 U/L (5-85); LACTATE DEHYDROGENASE 703 U/L (81-234)
[2025-09-13 10:11] LABS: % IRON SATURATION 42.9 % (22-44); IRON, SERUM 110.0 mcg/dL (50-170)
[2025-09-13 12:00] VITALS: BP 129/77; PULSE 71; RESP 17; TEMP 97.8
--- NOTE | 2025-09-13 13:09 | PN ---
[facility] PROGRESS NOTE Date of Service: Sep 13, 2025 Time of Service: 13:07 SUBJECTIVE: 09/12 patient remains admitted to the medical floor, the time of my visit she is comfortably in bed, alert oriented x3, getting IV fluids and IV antibiotics, no chest pain, shortness shortness for breath, no nausea, no vomiting, no abdominal discomfort. The results of the CT of the abdomen reviewed in detail, all questions answered. Understood the information provided. BP 120/60, afebrile, saturating normal on room air. Magnesium level of 1.4. Replace IV per protocol to keep magnesium level greater than two. Continue broad-spectrum antibiotics, follow results of urine culture, adjust antibiotics as needed. Follow a.m. labs. Results of CT of the abdomen reviewed, reported as follows: IMPRESSION: 1. Massive urinary bladder distention with intravesical gas, potentially due to recent instrumentation or infection. 2. Mild inflammatory changes in distal sigmoid colon, possibly related to diverticulitis. 3. 4.3 cm right adnexal cyst. 4. Ultrasound recommended for further evaluation of adnexal cyst. /[place] 09/13 patient remains admitted to medical floor, time of my visit comfortably in bed, alert oriented x3, admits mild right upper quadrant discomfort. She is getting IV fluids and IV antibiotics. Hemodynamically stable, afebrile, saturating normal on room air. The patient noted to have elevated liver enzymes, with a an AST of 770, ALT of 370, alkaline phosphate 205. Results of urine culture no growth. Remain on broad-spectrum antibiotics to include Rocephin and Flagyl IV. We will request GI consultation. Liver ultrasound. Follow serology test for elevated liver enzymes. Discussed with the patient, in agreement. REVIEW OF SYSTEMS A 12 point ROS was obtained all relevant positive documented otherwise ROS negative PHYSICAL EXAM GENERAL APPEARANCE: The patient is awake, alert, and oriented, in no acute cardiopulmonary distress. NEUROLOGICAL: Cranial nerves II-XII grossly intact. Motor is 5/5 in bilateral upper and lower extremities proximal to distal. No sensory deficits. HEENT: Face is symmetric. Pupils are equal and reactive. Extraocular movements are intact. NECK: Supple. No JVD. No thyromegaly. No submental, submandibular, pre- /postauricular, occipital or supraclavicular lymphadenopathy. CHEST: Normal chest expansion. No Telemetry. LUNGS: Absence of any rales, rhonchi or any wheezing. CARDIOVASCULAR: Regular. S1 and S2 normal. No appreciable rubs, murmurs or gallops. ABDOMEN: Soft, nontender, and nondistended. There is no rebound, voluntary guarding, or rigidity. : Deferred. No Garcia. EXTREMITIES: Non-edematous and not cyanotic. No clubbing. Good capillary refill. SKIN: No skin breakdown. Vital Signs (last 8hr) Date Time Temp Pulse Resp B/P (MAP) Pulse Ox O2 Delivery O2 Flow Rate FiO2 09/13/25 08:00 97.2 77 18 140/77 99 Room Air LABS: Laboratory: Test 09/13/25 11:47 09/13/25 09:35 09/13/25 05:48 09/13/25 04:30 Range/Units Whole Blood Glucose 135 H 70-110 MG/DL Iron Level 110 50-170 mcg/dL Total Iron Binding Capacity 256 250-450 mcg/dL Percent Iron Saturation 42.9 22-44 % Gamma Glutamyl Transpeptidase 455 H 5-85 U/L Ammonia 11 11-32 umol/L Lactate Dehydrogenase 703 H 81-234 U/L Amylase Level 64 25-115 U/L Lipase 138 H 16-77 U/L Total Bilirubin 0.7 0.2-1.0 mg/dL Direct Bilirubin 0.4 H 0.0-0.3 mg/dL Aspartate Amino Transf (AST/SGOT) 770 *H 10-37 U/L Alanine Aminotransferase (ALT/SGPT) 370 H 12-78 U/L Alkaline Phosphatase 205 H 50-136 U/L Total Protein 6.4 6.0-8.3 g/dL Albumin 2.8 L 3.5-5.0 g/dL White Blood Count 5.8 4.8-10.8 K/uL Red Blood Count 3.68 L 4.00-5.50 MIL/uL Hemoglobin 12.1 12.0-16.0 g/dL Hematocrit 35.5 L 36-48 % Mean Corpuscular Volume 96.5 79-99 fL Mean Corpuscular Hemoglobin 32.9 27.0-33.0 pg Mean Corpuscular Hemoglobin Concent 34.1 32.0-36.0 g/dL Red Cell Distribution Width 12.5 11.0-15.5 % Platelet Count 319 130-400 K/uL Mean Platelet Volume 9.9 7.5-10.5 fL Nucleated Red Blood Cells 0.0 0.0-0.19 % Sodium Level 138 136-145 mmol/L Potassium Level 4.0 3.5-5.1 mmol/L Chloride Level 105 101-111 mmol/L Carbon Dioxide Level 22 21-32 mmol/L Blood Urea Nitrogen 15 7-18 mg/dL Creatinine 1.1 H 0.5-1.0 mg/dL Glomerular Filtration Rate Calc 51 >90 mL/min Random Glucose 184 H 70-105 mg/dL Total Calcium 8.5 8.5-10.1 mg/dL Magnesium Level 1.70 L 1.80-2.40 mg/dL Test 09/12/25 04:22 Range/Units Immature Granulocyte % (Auto) 0.6 0-1 % Neutrophils (%) (Auto) 60.5 40.0-77.0 % Lymphocytes (%) (Auto) 27.7 21.0-51.0 % Monocytes (%) (Auto) 9.2 3.0-13.0 % Eosinophils (%) (Auto) 1.3 0.0-8.0 % Basophils (%) (Auto) 0.7 0.0-5.0 % Neutrophils # (Auto) 4.1 1.8-7.7 K/uL Lymphocytes # (Auto) 1.9 1.0-4.8 K/uL Monocytes # (Auto) 0.6 0.1-1.0 K/uL Eosinophils # (Auto) 0.09 0.00-0.70 K/uL Basophils # (Auto) 0.05 0.00-0.20 K/uL Absolute Immature Granulocyte (auto 0.04 0-1 K/uL Current Medications Medications (Trade) Dose Ordered Sig/Adela Route PRN Reason Start Time Stop Time Status Last Admin Dose Admin Acetaminophen (TYLenol 325MG TAB) 650 mg Q4H PRN PO TEMPERATURE GREATER THAN 101.5 09/11/25 12:30 10/11/25 12:29 09/12/25 21:58 650 MG Apixaban (EliquIS) 5 mg BID PO 09/12/25 10:30 10/12/25 10:29 09/13/25 09:19 5 MG Atorvastatin Calcium (LIPItor 10MG) 10 mg HS PO 09/12/25 10:30 09/13/25 09:18 DC 09/12/25 20:27 10 MG Ceftriaxone Sodium (ROCEphine 1G INJ) 1 gm Q24H IVPB 09/11/25 12:30 09/21/25 12:29 09/13/25 11:55 1 GM Ergocalciferol (Drisdol) 50,000 unit QWEEK PO 09/12/25 10:30 10/12/25 10:29 09/12/25 11:04 50,000 UNIT Famotidine (Pepcid 20mg Tab) 20 mg Q48H PO 09/12/25 09:00 10/12/25 08:59 09/12/25 08:24 20 MG Hydralazine HCl (APRESOLine 20MG INJ) 5 mg Q4H PRN IV ADMINISTER FOR SBP > 160 09/11/25 12:30 10/11/25 12:29 Losartan Potassium (CozAAR 25MG TAB) 25 mg DAILY PO 09/13/25 09:00 10/13/25 08:59 09/13/25 09:19 25 MG Magnesium Sulfate 50 ml @ 0 mls/hr PROTOCOL IV 09/12/25 10:30 10/12/25 10:29 09/13/25 02:58 25 MLS/HR Magnesium Sulfate 50 ml @ 0 mls/hr PROTOCOL PRN IV low mag level 09/11/25 12:30 09/12/25 10:23 DC 09/12/25 05:25 25 MLS/HR Metoprolol Succinate (TopROL XL) 50 mg DAILYDINNER PO 09/12/25 17:00 10/12/25 16:59 09/12/25 18:36 50 MG Metronidazole/ Sodium Chloride (flaGYL) 500 mg Q8H IV 09/12/25 10:30 09/22/25 10:29 09/13/25 10:10 500 MG Ondansetron HCl (zoFRAN 4MG INJ) 4 mg Q6H PRN IVP NAUSEA/VOMITING 09/11/25 12:30 10/11/25 12:29 Potassium Chloride 100 ml @ 100 mls/hr AD PRN IV POTASSIUM PROTOCOL 09/11/25 12:30 10/11/25 12:29 Potassium Chloride (K-Dur/Klor-Con 20meq) 20 meq AD PRN PO POTASSIUM PROTOCOL 09/11/25 12:30 10/11/25 12:29 Potassium Chloride (KCl 10% Elixir 20meq/15ml) 20 meq AD PRN PO POTASSIUM PROTOCOL 09/11/25 12:30 10/11/25 12:29 Primidone (Mysoline) 50 mg BID PO 09/12/25 10:30 10/12/25 10:29 09/12/25 20:27 50 MG Sennosides (Senna) 1 tab BID PRN PO CONSTIPATION 09/11/25 12:30 10/11/25 12:29 Sodium Chloride 1,000 ml @ 75 mls/hr [id number] IV 09/11/25 12:30 10/11/25 12:29 09/13/25 05:09 75 MLS/HR DIAGNOSTICS / RADIOLOGY: [ ] ASSESSMENT: UTI failed outpatient treatment POA Distended bladder requiring Garcia catheter insertion POA urinary retention POA DOMI on CRF POA hypercoagulable state secondary to afib on Eliquis POA A fibb on Eliquis POA Possible acute diverticulitis of the sigmoid colon PLAN: patient remains admitted to medical floor, time of my visit comfortably in bed, alert oriented x3, admits mild right upper quadrant discomfort. She is getting IV fluids and IV antibiotics. Hemodynamically stable, afebrile, saturating normal on room air. The patient noted to have elevated liver enzymes, with a an AST of 770, ALT of 370, alkaline phosphate 205. Results of urine culture no growth. Remain on broad-spectrum antibiotics to include Rocephin and Flagyl IV. We will request GI consultation. Liver ultrasound. Follow serology test for e levated liver enzymes. Discussed with the patient, in agreement. Results of CT of the abdomen reviewed, reported as follows: IMPRESSION: 1. Massive urinary bladder distention with intravesical gas, potentially due to recent instrumentation or infection. 2. Mild inflammatory changes in distal sigmoid colon, possibly related to diverticulitis. 3. 4.3 cm right adnexal cyst. 4. Ultrasound recommended for further evaluation of adnexal cyst. NEURO: Minimize central acting medications as possible. Fall Precautions. Well lighted room through the day and minimize interruptions through the night to prevent acute delirium. PULMONARY: Supplemental 02 as needed BiPAP as necessary, for respiratory distress Titrate Fio2 to keep Spo2 > or = 90% DuoNebs and CPT as needed IS hourly while awake for pulmonary hygiene prn Out of bed to chair as tolerated Maintain aspiration precautions at all times CARDIOVASCULAR: Follow hemodynamics. Vital signs per facility protocol GI & NUTRITION: Continue nutritional support Aspirations precautions Prokinetic agents and laxatives as needed KIDNEYS & ELECTROLYTES: Strict monitoring of intake and output Daily weights Avoid nephrotoxic agents Monitor electrolytes and replace as needed Goal urine output of 30mL/hr or 0.5mL/kg/hr Medications to be dosed according to renal function. Avoid contrast if possible ENDOCRINE: Maintain blood glucose between 100-180 at all times. Insulin sliding scale for blood glucose management Hypoglycemia and hyperglycemia protocol in place INFECTIOUS DISEASE: Trend temperature, WBC and procalcitonin level Follow cultures, deescalate antibiotics as soon as possible. Panculture if new onset fever HEMATOLOGY & COAGULATION: Monitor H&H. Keep Hgb > 7 Transfuse 1 unit of PRBC for Hgb < 7 Transfuse 1 pack of platelets of platelets < 20, 000 Watch for any signs and symptoms of bleeding SKIN: Pressure ulcer prevention per facility protocol Specialty mattress as needed ORTHO/REHAB Continue PT/OT PRN: MEDICATIONS Tylenol 650 mg po every 4 hrs for fever zofran 4 mg IV every 6 hrs for n/v Hydralazine 5 mg IV every 4 hrs systolic pressure > 160 bowel regiment: lactulose 20 gm PO BID PRN constipation Supportive measures: Continue GI and DVT prophylaxis Disposition: Pending improvement in clinical condition All questions answered time spent: > 35 min MARIANA NGUYEN MD Sep 13, 2025 13:09
[2025-09-13 16:00] VITALS: BP 133/78; PULSE 81; RESP 16; TEMP 98
[2025-09-13 20:00] VITALS: BP 121/57; PULSE 76; RESP 18; TEMP 98; O2SAT 98
--- NOTE | 2025-09-13 22:25 | NUR ---
RASH PATIENT AWAKE AND ALERT. VOICES ALL NEEDS. NO COMPLAINTS OF PAIN VOICED AT THIS TIME. VITALS STABLE. AFEBRILE. RESP EVEN AND UNLABORED. NO SOB NOTED. ON ROOM AIR. KIRK CATHETER PATENT AND DRAINING YELLOW URINE TO BSD, UP AD DAVID. RASH REPORTED TO HOSPITALIST. NEW ORDERS RECEIVED AND CARRIED OUT. PATIENT AWARE. NO SIGNS OF DISTRESS NOTED AT THIS TIME. CALL LIGHT WITHIN REACH. Addendum: 09/13/25 at 2228 by DAVIAN GUERIN RN RN Amended: Links added.
[2025-09-13] MEDS: FAMOTIDINE 20MG VIAL IV ONE (22:36)
--- NOTE | 2025-09-13 23:00 | HMCIMG ---
EXAM: Right Upper Quadrant Abdominal Ultrasound HISTORY: Transaminitis. TECHNIQUE: Real-time grayscale and color Doppler ultrasound evaluation of the right upper quadrant was performed. COMPARISON: CT abdomen and pelvis without intravenous contrast dated September 11, 2025. FINDINGS: LIVER: The liver measures approximately 13 cm in craniocaudal dimension. Hepatic parenchyma demonstrates increased echogenicity, consistent with hepatic steatosis. No focal hepatic mass is identified. The main portal vein is patent with hepatopetal flow, with a measured velocity of approximately 20 cm/s. GALLBLADDER: The gallbladder is surgically absent, consistent with prior CT. BILIARY SYSTEM: The common bile duct measures approximately 5 mm in diameter, within normal limits for post-cholecystectomy status. No intrahepatic or extrahepatic biliary ductal dilatation is identified. PANCREAS: The pancreas is visualized and appears within normal limits in size and echotexture. RIGHT KIDNEY: The right kidney measures approximately 8.1 x 4.0 x 3.8 cm. Renal cortical thickness and echogenicity are preserved. No hydronephrosis is identified. ASCITES: No free fluid is identified within the right upper quadrant. IMPRESSION: * Hepatic steatosis. * Status post cholecystectomy with normal caliber common bile duct. * No acute right upper quadrant sonographic abnormality. * No sonographic evidence of ascites. RECOMMENDATIONS: Per ACR Appropriateness Criteria, no additional right upper quadrant imaging is recommended at this time. Correlation with liver function tests and clinical history is advised. /[place]
[2025-09-14] VITALS (7 sets, daily range): BP systolic 103–139; BP diastolic 52–88; PULSE 63–90; RESP 16–18; TEMP 97.5–98.2; O2SAT 97–98
[2025-09-14 05:11] LABS: NUCLEATED RED BLOOD CELLS 0.0 % (0.0-0.19); PLATELET COUNT (AUTO) 263.0 K/uL (130-400); RED BLOOD CELL COUNT(AUTO) 3.74 MIL/uL (4.00-5.50); RED CELL DISTRIBUTION WIDTH 12.6 % (11.0-15.5); WHITE BLOOD COUNT (AUTO) 7.2 K/uL (4.8-10.8)
[2025-09-14 05:38] LABS: ASPARTATE AMINOTRANSFERASE 239.0 U/L (10-37); CREATININE 0.8 mg/dL (0.5-1.0); GLOMERULAR FILTR. RATE CALC 75.0 mL/min (>90); GLUCOSE,RANDOM 209.0 mg/dL (70-105); SODIUM SERUM 137.0 mmol/L (136-145); TOTAL PROTEIN, SERUM 7.0 g/dL (6.0-8.3); UREA NITROGEN, BLOOD 12.0 mg/dL (7-18)
--- NOTE | 2025-09-14 09:08 | PN ---
[facility] PROGRESS NOTE Date of Service: Sep 14, 2025 Time of Service: 09:05 SUBJECTIVE: 09/12 patient remains admitted to the medical floor, the time of my visit she is comfortably in bed, alert oriented x3, getting IV fluids and IV antibiotics, no chest pain, shortness shortness for breath, no nausea, no vomiting, no abdominal discomfort. The results of the CT of the abdomen reviewed in detail, all questions answered. Understood the information provided. BP 120/60, afebrile, saturating normal on room air. Magnesium level of 1.4. Replace IV per protocol to keep magnesium level greater than two. Continue broad-spectrum antibiotics, follow results of urine culture, adjust antibiotics as needed. Follow a.m. labs. Results of CT of the abdomen reviewed, reported as follows: IMPRESSION: 1. Massive urinary bladder distention with intravesical gas, potentially due to recent instrumentation or infection. 2. Mild inflammatory changes in distal sigmoid colon, possibly related to diverticulitis. 3. 4.3 cm right adnexal cyst. 4. Ultrasound recommended for further evaluation of adnexal cyst. /[place] 09/13 patient remains admitted to medical floor, time of my visit comfortably in bed, alert oriented x3, admits mild right upper quadrant discomfort. She is getting IV fluids and IV antibiotics. Hemodynamically stable, afebrile, saturating normal on room air. The patient noted to have elevated liver enzymes, with a an AST of 770, ALT of 370, alkaline phosphate 205. Results of urine culture no growth. Remain on broad-spectrum antibiotics to include Rocephin and Flagyl IV. We will request GI consultation. Liver ultrasound. Follow serology test for elevated liver enzymes. Discussed with the patient, in agreement. 09/14 80 year old female that presents in ED with chief complaints of abdominal pain started two weeks ago. CT abdomen and pelvis showing massive urinary bladder distention with a intravesical gas, potentially due to recent instrumentation or infection. ER place Garcia catheter, drained 800 mL, color dark ambrose. Empiric treatment started for UTI. Urine culture no growth 36/48 hours. Found to have transaminitis, liver enzymes slowly improving, ultrasound abdomen showing hepatic steatosis, status post cholecystectomy with a normal caliber common bile duct, no acute right upper quadrant sonographic abnormality, no evidence of ascites. GI consultation requested. Follow serology test. Discussed with the RN, no acute events overnight. REVIEW OF SYSTEMS A 12 point ROS was obtained all relevant positive documented otherwise ROS negative PHYSICAL EXAM GENERAL APPEARANCE: The patient is awake, alert, and oriented, in no acute cardiopulmonary distress. NEUROLOGICAL: Cranial nerves II-XII grossly intact. Motor is 5/5 in bilateral upper and lower extremities proximal to distal. No sensory deficits. HEENT: Face is symmetric. Pupils are equal and reactive. Extraocular movements are intact. NECK: Supple. No JVD. No thyromegaly. No submental, submandibular, pre- /postauricular, occipital or supraclavicular lymphadenopathy. CHEST: Normal chest expansion. No Telemetry. LUNGS: Absence of any rales, rhonchi or any wheezing. CARDIOVASCULAR: Regular. S1 and S2 normal. No appreciable rubs, murmurs or gallops. ABDOMEN: Soft, nontender, and nondistended. There is no rebound, voluntary guarding, or rigidity. : Deferred. No Garcia. EXTREMITIES: Non-edematous and not cyanotic. No clubbing. Good capillary refill. SKIN: No skin breakdown. Vital Signs (last 8hr) Date Time Temp Pulse Resp B/P (MAP) Pulse Ox O2 Delivery O2 Flow Rate FiO2 09/14/25 08:00 97.7 83 16 119/79 98 Room Air 09/14/25 04:00 98.1 78 18 139/63 96 Room Air LABS: Laboratory: Test 09/14/25 05:46 09/14/25 04:32 09/13/25 09:35 09/13/25 05:48 Range/Units Whole Blood Glucose 228 H 70-110 MG/DL White Blood Count 7.2 4.8-10.8 K/uL Red Blood Count 3.74 L 4.00-5.50 MIL/uL Hemoglobin 12.3 12.0-16.0 g/dL Hematocrit 35.7 L 36-48 % Mean Corpuscular Volume 95.5 79-99 fL Mean Corpuscular Hemoglobin 32.9 27.0-33.0 pg Mean Corpuscular Hemoglobin Concent 34.5 32.0-36.0 g/dL Red Cell Distribution Width 12.6 11.0-15.5 % Platelet Count 263 130-400 K/uL Mean Platelet Volume 10.1 7.5-10.5 fL Nucleated Red Blood Cells 0.0 0.0-0.19 % Sodium Level 137 136-145 mmol/L Potassium Level 4.4 3.5-5.1 mmol/L Chloride Level 106 101-111 mmol/L Carbon Dioxide Level 21 21-32 mmol/L Blood Urea Nitrogen 12 7-18 mg/dL Creatinine 0.8 0.5-1.0 mg/dL Glomerular Filtration Rate Calc 75 >90 mL/min Random Glucose 209 H 70-105 mg/dL Total Calcium 8.6 8.5-10.1 mg/dL Magnesium Level 1.60 L 1.80-2.40 mg/dL Total Bilirubin 0.5 # 0.2-1.0 mg/dL Aspartate Amino Transf (AST/SGOT) 239 H 10-37 U/L Alanine Aminotransferase (ALT/SGPT) 336 H 12-78 U/L Alkaline Phosphatase 192 H 50-136 U/L Total Protein 7.0 6.0-8.3 g/dL Albumin 3.0 L 3.5-5.0 g/dL Iron Level 110 50-170 mcg/dL Total Iron Binding Capacity 256 250-450 mcg/dL Percent Iron Saturation 42.9 22-44 % Gamma Glutamyl Transpeptidase 455 H 5-85 U/L Ammonia 11 11-32 umol/L Lactate Dehydrogenase 703 H 81-234 U/L Amylase Level 64 25-115 U/L Lipase 138 H 16-77 U/L Direct Bilirubin 0.4 H 0.0-0.3 mg/dL Current Medications Medications (Trade) Dose Ordered Sig/Adela Route PRN Reason Start Time Stop Time Status Last Admin Dose Admin Acetaminophen (TYLenol 325MG TAB) 650 mg Q4H PRN PO TEMPERATURE GREATER THAN 101.5 09/11/25 12:30 10/11/25 12:29 09/12/25 21:58 650 MG Apixaban (EliquIS) 5 mg BID PO 09/12/25 10:30 10/12/25 10:29 09/13/25 20:55 5 MG Atorvastatin Calcium (LIPItor 10MG) 10 mg HS PO 09/12/25 10:30 09/13/25 09:18 DC 09/12/25 20:27 10 MG Ceftriaxone Sodium (ROCEphine 1G INJ) 1 gm Q24H IVPB 09/11/25 12:30 09/21/25 12:29 09/13/25 11:55 1 GM Diphenhydramine HCl (BENAdryl INJ) 25 mg Q6H PRN IV ITCHING 09/13/25 22:30 10/13/25 22:29 09/13/25 22:37 25 MG Ergocalciferol (Drisdol) 50,000 unit QWEEK PO 09/12/25 10:30 10/12/25 10:29 09/12/25 11:04 50,000 UNIT Famotidine (Pepcid 20mg Tab) 20 mg Q48H PO 09/12/25 09:00 10/12/25 08:59 09/12/25 08:24 20 MG Hydralazine HCl (APRESOLine 20MG INJ) 5 mg Q4H PRN IV ADMINISTER FOR SBP > 160 09/11/25 12:30 10/11/25 12:29 Losartan Potassium (CozAAR 25MG TAB) 25 mg DAILY PO 09/13/25 09:00 10/13/25 08:59 09/13/25 09:19 25 MG Magnesium Sulfate 50 ml @ 0 mls/hr PROTOCOL IV 09/12/25 10:30 10/12/25 10:29 09/14/25 06:22 25 MLS/HR Magnesium Sulfate 50 ml @ 0 mls/hr PROTOCOL PRN IV low mag level 09/11/25 12:30 09/12/25 10:23 DC 09/12/25 05:25 25 MLS/HR Metoprolol Succinate (TopROL XL) 50 mg DAILYDINNER PO 09/12/25 17:00 10/12/25 16:59 09/13/25 17:40 50 MG Metronidazole/ Sodium Chloride (flaGYL) 500 mg Q8H IV 09/12/25 10:30 09/22/25 10:29 09/14/25 02:17 500 MG Ondansetron HCl (zoFRAN 4MG INJ) 4 mg Q6H PRN IVP NAUSEA/VOMITING 09/11/25 12:30 10/11/25 12:29 Potassium Chloride 100 ml @ 100 mls/hr AD PRN IV POTASSIUM PROTOCOL 09/11/25 12:30 10/11/25 12:29 Potassium Chloride (K-Dur/Klor-Con 20meq) 20 meq AD PRN PO POTASSIUM PROTOCOL 09/11/25 12:30 10/11/25 12:29 Potassium Chloride (KCl 10% Elixir 20meq/15ml) 20 meq AD PRN PO POTASSIUM PROTOCOL 09/11/25 12:30 10/11/25 12:29 Primidone (Mysoline) 50 mg BID PO 09/12/25 10:30 10/12/25 10:29 09/13/25 20:55 50 MG Sennosides (Senna) 1 tab BID PRN PO CONSTIPATION 09/11/25 12:30 10/11/25 12:29 Sodium Chloride 1,000 ml @ 75 mls/hr [id number] IV 09/11/25 12:30 10/11/25 12:29 09/14/25 02:18 75 MLS/HR DIAGNOSTICS / RADIOLOGY: [ ] ASSESSMENT: UTI failed outpatient treatment POA Distended bladder requiring Garcia catheter insertion POA urinary retention POA DOMI on CRF POA hypercoagulable state secondary to afib on Eliquis POA A fibb on Eliquis POA Possible acute diverticulitis of the sigmoid colon PLAN: 80 year old female that presents in ED with chief complaints of abdominal pain started two weeks ago. CT abdomen and pelvis showing massive urinary bladder distention with a intravesical gas, potentially due to recent instrumentation or infection. ER place Garcia catheter, drained 800 mL, color dark ambrose. Empiric treatment started for UTI. Urine culture no growth 36/48 hours. Found to have transaminitis, liver enzymes slowly improving, ultrasound abdomen showing hepatic steatosis, status post cholecystectomy with a normal caliber common bile duct, no acute right upper quadrant sonographic abnormality, no evidence of ascites. GI consultation requested. Follow serology test. Results of CT of the abdomen reviewed, reported as follows: IMPRESSION: 1. Massive urinary bladder distention with intravesical gas, potentially due to recent instrumentation or infection. 2. Mild inflammatory changes in distal sigmoid colon, possibly related to diverticulitis. 3. 4.3 cm right adnexal cyst. 4. Ultrasound recommended for further evaluation of adnexal cyst. NEURO: Minimize central acting medications as possible. Fall Precautions. Well lighted room through the day and minimize interruptions through the night to prevent acute delirium. PULMONARY: Supplemental 02 as needed BiPAP as necessary, for respiratory distress Titrate Fio2 to keep Spo2 > or = 90% DuoNebs and CPT as needed IS hourly while awake for pulmonary hygiene prn Out of bed to chair as tolerated Maintain aspiration precautions at all times CARDIOVASCULAR: Follow hemodynamics. Vital signs per facility protocol GI & NUTRITION: Continue nutritional support Aspirations precautions Prokinetic agents and laxatives as needed KIDNEYS & ELECTROLYTES: Strict monitoring of intake and output Daily weights Avoid nephrotoxic agents Monitor electrolytes and replace as needed Goal urine output of 30mL/hr or 0.5mL/kg/hr Medications to be dosed according to renal function. Avoid contrast if possible ENDOCRINE: Maintain blood glucose between 100-180 at all times. Insulin sliding scale for blood glucose management Hypoglycemia and hyperglycemia protocol in place INFECTIOUS DISEASE: Trend temperature, WBC and procalcitonin level Follow cultures, deescalate antibiotics as soon as possible. Panculture if new onset fever HEMATOLOGY & COAGULATION: Monitor H&H. Keep Hgb > 7 Transfuse 1 unit of PRBC for Hgb < 7 Transfuse 1 pack of platelets of platelets < 20, 000 Watch for any signs and symptoms of bleeding SKIN: Pressure ulcer prevention per facility protocol Specialty mattress as needed ORTHO/REHAB Continue PT/OT PRN: MEDICATIONS Tylenol 650 mg po every 4 hrs for fever zofran 4 mg IV every 6 hrs for n/v Hydralazine 5 mg IV every 4 hrs systolic pressure > 160 bowel regiment: lactulose 20 gm PO BID PRN constipation Supportive measures: Continue GI and DVT prophylaxis Disposition: Pending improvement in clinical condition All questions answered time spent: > 35 min MARIANA NGUYEN MD Sep 14, 2025 09:08
[2025-09-14 11:05] LABS: % IRON SATURATION 51.0 % (22-44); IRON, SERUM 122.0 mcg/dL (50-170)
--- NOTE | 2025-09-14 16:43 | HMCIMG ---
STUDY MR abdomen without IV contrast /MRCP HISTORY Transaminitis TECHNIQUE Multisequence, multiplanar MR imaging of the abdomen without intravenous contrast, including axial and coronal T2-weighted, in- and [id number], fat-suppressed T2, diffusion-weighted imaging, and 3D MRCP sequences COMPARISON None provided FINDINGS Lower thorax No pleural effusion is identified. Visualized lung bases are clear. Liver and biliary system Liver demonstrates diffuse signal changes compatible with hepatic steatosis. There is minimal central intrahepatic biliary ductal prominence. The common bile duct measures up to approximately 0.9 cm with smooth tapering to the ampullary region. No intraductal filling defect or obstructing lesion is identified. The gallbladder is surgically absent. Pancreas Pancreatic parenchyma and main pancreatic duct are normal in caliber and signal without evidence of mass, peripancreatic fluid collection, or inflammatory change. Spleen and adrenal glands Spleen and adrenal glands are normal in size and signal characteristics without focal lesion. Kidneys and retroperitoneum Both kidneys are normal in size and morphology without hydronephrosis, focal mass, or restricted diffusion. Mild bilateral perinephric fat stranding is present, of uncertain clinical significance, without associated fluid collection or discrete mass. Stomach and bowel Limited evaluation of the stomach and visualized bowel loops shows no evidence of obstruction, significant wall thickening, or perienteric inflammatory change. Lymph nodes No pathologically enlarged abdominal lymph nodes are identified. Vasculature Abdominal aorta and major abdominal vessels are normal in caliber without aneurysm. Peritoneum and abdominal wall No free intraperitoneal fluid or free air is seen. No focal abdominal wall collection is identified. IMPRESSION * Diffuse hepatic steatosis with mild central intrahepatic ductal prominence and common bile duct measuring up to 0.9 cm with smooth ampullary tapering, without MRCP evidence of choledocholithiasis or obstructing lesion. * Mild bilateral perinephric fat stranding of uncertain significance without hydronephrosis or focal renal lesion; no prior study available for comparison and no additional acute intra-abdominal process identified to explain transaminitis. /[place]
[2025-09-15] VITALS: BP 113/66; PULSE 82; RESP 17; TEMP 97.8
[2025-09-15 04:00] VITALS: BP 111/59; PULSE 66; RESP 17; TEMP 97.7
[2025-09-15 04:17] LABS: HEPATITIS B CORE AB TOTAL Non-Reactive (Nonreactive)
[2025-09-15 04:28] LABS: NUCLEATED RED BLOOD CELLS 0.0 % (0.0-0.19); PLATELET COUNT (AUTO) 263.0 K/uL (130-400); RED BLOOD CELL COUNT(AUTO) 3.18 MIL/uL (4.00-5.50); RED CELL DISTRIBUTION WIDTH 12.9 % (11.0-15.5); WHITE BLOOD COUNT (AUTO) 10.1 K/uL (4.8-10.8)
[2025-09-15 05:02] LABS: ASPARTATE AMINOTRANSFERASE 63.0 U/L (10-37); CREATININE 1.0 mg/dL (0.5-1.0); GLOMERULAR FILTR. RATE CALC 57.0 mL/min (>90); GLUCOSE,RANDOM 183.0 mg/dL (70-105); SODIUM SERUM 138.0 mmol/L (136-145); TOTAL PROTEIN, SERUM 6.0 g/dL (6.0-8.3); UREA NITROGEN, BLOOD 15.0 mg/dL (7-18)
[2025-09-15 07:56] VITALS: BP 118/64; PULSE 96; RESP 17; TEMP 98
--- NOTE | 2025-09-15 10:08 | CONS ---
GASTROENTEROLOGY CONSULTATION NOTE Date of Consultation: Sep 15, 2025 Time of Consultation: 10:00 History of Present Illness: [80-year-old female patient with past medical history for type 2 diabetes, who presented to the emergency department with complaints of pain upon urination, and nausea currently being treated for UTI with Augmentin. On admission she was noted to have normal LFTs. Bilirubin of 0.8, AST trended up to 778 on 09/13 2025, as well as ALT trended up to 355. Alkaline phosphatase increased to 224. We were consulted for transaminitis. WBC today 10.1, hemoglobin 10.4, platelets 263. Chemistries today significant for total bilirubin 0.3, AST 63, ALT 189, alkaline phosphatase 134, total protein 6.0, albumin 2.6. Liver serologies are pending. Abdominal ultrasound showing hepatic steatosis, status post cholecystectomy with normal caliber common bile duct. No evidence of ascites. MRCP showing diffuse hepatic steatosis with mild central intrahepatic ductal prominence and common bile duct measuring up to 0.9 cm with small ampullary tapering without MRCP evidence of choledocholithiasis or obstructing lesion. Mild bilateral perinephric fat stranding of uncertain significance without hydronephrosis or focal renal lesion.] Review of Systems: CONSTITUTIONAL: No malaise or change in sensation of wellbeing. ENMT: No rhinorrhea, otorrhea, sinus pain, ear ache. CARDIOVASCULAR: No angina, palpitations, orthopnea or paroxysmal dyspnea. RESPIRATORY: No SOB. GASTROINTESTINAL: No abdominal pain, nausea, vomiting, diarrhea, hematemesis, melena or change in the patient's habitual bowel movements consistency/number. GENITOURINARY: No dysuria, hematuria or change in bladder continence. MUSCULOSKELETAL: No new muscle pain or decrease in muscular strength. No new joint swelling, redness or tenderness. SKIN: No new rash. Past Medical History: Hyperlipidemia hypertension AFib PAST SURGICAL HISTORY: Cholecystectomy, herniorrhaphy incisional hernia repair, hysterectomy. PAST SOCIAL HISTORY: She denies smoking or use of alcohol or any illicit drugs Coded Allergies: No Known Drug Allergies (Verified Allergy, 03/27/12) Physical Exam: GEN: Awake, alert, oriented in person, time and place, and in no acute distress. HEENT: No sinus tenderness. Tympanic membranes were not examined. No rhinorrhea. Oral pharyngeal mucosa is pink, moist and within normal limits. Neck is supple with no cervical lymphadenopathy, thyromegaly or JVD. CHEST: Inspection, palpation and percussion of the chest were unremarkable. Lung auscultation revealed normal breath sounds bilaterally. CARDIAC: PMI is within normal limits. Heart sounds are regular. Normal S1, S2. No gallop or murmur. ABD: Soft, non-tender and not distended. No peritoneal signs on palpation. No organomegaly. Normal bowel sounds. EXT: No cyanosis or clubbing. No edema. SKIN: Intact. No rashes. JOINTS: No evidence of synovitis or acute arthritis. NEURO: Alert and oriented to name, place and person. Cranial nerve examination is unremarkable. No focal motor deficits. Normal speech. Gait is normal. Strength is normal. Vital Sign (Last 24 Hours) 09/14/25 09/15/25 20:00 07:56 Temp 98.1 Pulse 96 Resp 17 B/P (MAP) 118/64 Pulse Ox 98 O2 Delivery Room Air O2 Flow Rate 0 FiO2 21 Intake & Output (last 24hrs)0 09/14/25 09/14/25 09/15/25 15:00 23:00 07:00 Intake Total 150.0 ml 100.0 ml Output Total 2200 ml 400 ml Balance -2050.0 ml -300.0 ml Laboratory: [ ] Laboratory: Test 09/15/25 05:13 09/15/25 04:14 09/14/25 11:20 09/14/25 04:32 Range/Units Whole Blood Glucose 152 H 70-110 MG/DL White Blood Count 10.1 # 4.8-10.8 K/uL Red Blood Count 3.18 L 4.00-5.50 MIL/uL Hemoglobin 10.5 L 12.0-16.0 g/dL Hematocrit 31.0 L 36-48 % Mean Corpuscular Volume 97.5 79-99 fL Mean Corpuscular Hemoglobin 33.0 27.0-33.0 pg Mean Corpuscular Hemoglobin Concent 33.9 32.0-36.0 g/dL Red Cell Distribution Width 12.9 11.0-15.5 % Platelet Count 263 130-400 K/uL Mean Platelet Volume 10.1 7.5-10.5 fL Nucleated Red Blood Cells 0.0 0.0-0.19 % Sodium Level 138 136-145 mmol/L Potassium Level 4.2 3.5-5.1 mmol/L Chloride Level 108 101-111 mmol/L Carbon Dioxide Level 24 21-32 mmol/L Blood Urea Nitrogen 15 7-18 mg/dL Creatinine 1.0 0.5-1.0 mg/dL Glomerular Filtration Rate Calc 57 >90 mL/min Random Glucose 183 H 70-105 mg/dL Total Calcium 8.2 L 8.5-10.1 mg/dL Magnesium Level 1.60 L 1.80-2.40 mg/dL Total Bilirubin 0.3 # 0.2-1.0 mg/dL Aspartate Amino Transf (AST/SGOT) 63 H 10-37 U/L Alanine Aminotransferase (ALT/SGPT) 189 #H 12-78 U/L Alkaline Phosphatase 134 # 50-136 U/L Total Protein 6.0 6.0-8.3 g/dL Albumin 2.6 L 3.5-5.0 g/dL Hepatitis B Core Total Antibody. Non-Reactive Nonreactive Iron Level 122 50-170 mcg/dL Total Iron Binding Capacity 239 L 250-450 mcg/dL Percent Iron Saturation 51.0 H 22-44 % Current Medications Medications (Trade) Dose Ordered Sig/Adela Route PRN Reason Start Time Stop Time Status Last Admin Dose Admin Acetaminophen (TYLenol 325MG TAB) 650 mg Q4H PRN PO TEMPERATURE GREATER THAN 101.5 09/11/25 12:30 10/11/25 12:29 09/12/25 21:58 650 MG Apixaban (EliquIS) 5 mg BID PO 09/12/25 10:30 10/12/25 10:29 09/15/25 08:20 5 MG Atorvastatin Calcium (LIPItor 10MG) 10 mg HS PO 09/12/25 10:30 09/13/25 09:18 DC 09/12/25 20:27 10 MG Ceftriaxone Sodium (ROCEphine 1G INJ) 1 gm Q24H IVPB 09/11/25 12:30 09/21/25 12:29 09/14/25 13:06 1 GM Diphenhydramine HCl (BENAdryl INJ) 25 mg Q6H PRN IV ITCHING 09/13/25 22:30 10/13/25 22:29 09/14/25 21:48 25 MG Ergocalciferol (Drisdol) 50,000 unit QWEEK PO 09/12/25 10:30 10/12/25 10:29 09/12/25 11:04 50,000 UNIT Famotidine (Pepcid 20mg Tab) 20 mg Q48H PO 09/12/25 09:00 10/12/25 08:59 09/12/25 08:24 20 MG Hydralazine HCl (APRESOLine 20MG INJ) 5 mg Q4H PRN IV ADMINISTER FOR SBP > 160 09/11/25 12:30 10/11/25 12:29 Losartan Potassium (CozAAR 25MG TAB) 25 mg DAILY PO 09/13/25 09:00 10/13/25 08:59 09/15/25 08:20 25 MG Magnesium Sulfate 50 ml @ 0 mls/hr PROTOCOL IV 09/12/25 10:30 10/12/25 10:29 09/15/25 09:00 25 MLS/HR Magnesium Sulfate 50 ml @ 0 mls/hr PROTOCOL PRN IV low mag level 09/11/25 12:30 09/12/25 10:23 DC 09/12/25 05:25 25 MLS/HR Metoprolol Succinate (TopROL XL) 50 mg DAILYDINNER PO 09/12/25 17:00 10/12/25 16:59 09/14/25 17:14 50 MG Metronidazole/ Sodium Chloride (flaGYL) 500 mg Q8H IV 09/12/25 10:30 09/22/25 10:29 09/15/25 03:37 500 MG Ondansetron HCl (zoFRAN 4MG INJ) 4 mg Q6H PRN IVP NAUSEA/VOMITING 09/11/25 12:30 10/11/25 12:29 Potassium Chloride 100 ml @ 100 mls/hr AD PRN IV POTASSIUM PROTOCOL 09/11/25 12:30 10/11/25 12:29 Potassium Chloride (K-Dur/Klor-Con 20meq) 20 meq AD PRN PO POTASSIUM PROTOCOL 09/11/25 12:30 10/11/25 12:29 Potassium Chloride (KCl 10% Elixir 20meq/15ml) 20 meq AD PRN PO POTASSIUM PROTOCOL 09/11/25 12:30 10/11/25 12:29 Primidone (Mysoline) 50 mg BID PO 09/12/25 10:30 10/12/25 10:29 09/15/25 08:20 50 MG Sennosides (Senna) 1 tab BID PRN PO CONSTIPATION 09/11/25 12:30 10/11/25 12:29 Sodium Chloride 1,000 ml @ 75 mls/hr [id number] IV 09/11/25 12:30 10/11/25 12:29 09/14/25 20:23 75 MLS/HR Diagnostics / Radiology: [COPY/PASTE HERE IF NO REPORTS PLEASE DELETE SECTION] Assessment: [ Transaminitis Hepatic steatosis Plan: Case discussed with Dr. Garcia [No GI endoscopic intervention recommended at this time MRCP negative for choledocholithiasis. Trend LFTs Will continue to follow Please call with questions, concerns, and change in clinical status Patient is to f/u at [facility] once discharge Thank you for this consult ] EVE COLLINS [employer] Sep 15, 2025 10:08
[2025-09-15 10:12] LABS: ALPHA-1-ANTITRYPSIN 157 mg/dL (101-187)
--- NOTE | 2025-09-15 10:45 | NUR ---
ROUND AT BEDSIDE ORDERED TO DC KIRK CATH.
--- NOTE | 2025-09-15 10:45 | NUR ---
ROUND AT BEDSIDE. ORDERED GI SOFT DIET FOR LUNCH. IF PT TOLERATES TO DC HOME. CONTINUE ALL HOME MEDS. FOLLOW UP WITH PCP WITHIN 2-3 DAYS. AWARE OF AST/ALT LABS. NO FURTHER ORDERS GIVEN AT THIS TIME.
[2025-09-15 11:01] VITALS: BP 117/71; PULSE 70; RESP 18
[2025-09-15 15:26] LABS: HEPATITIS A IGM ANTIBODY Non-Reactive (Nonreactive); HEPATITIS B CORE IGM ANTIBODY Non-Reactive (Negative)
[2025-09-15 15:48] VITALS: BP 104/75; PULSE 66; RESP 17
--- NOTE | 2025-09-15 17:20 | NUR ---
DISCHARGE SON AT BEDSIDE. PT DENIES PAIN AT THIS TIME. PT AND SON AWARE TO FOLLOW UP WITH PCP WITHIN 2-3 DAYS AND GI WITHIN 1 WEEK. PHONE NUMBER PROVIDED . DC'D IV. NO QUESTIONS AT THIS TIME.
== END 2025-09-15 17:25 | disposition home or self-care (01) | DRG 690 ==
LOC: EDH 08:50 → EDHIP 12:12 → 3AH 21:39
PROVIDERS: ADMIT Internal Medicine; ATTEND Internal Medicine
DX: N39.0 Urinary tract infection, site not specified (principal); N17.9 Acute kidney failure, unspecified; D68.69 Other thrombophilia; E11.22 Type 2 diabetes mellitus with diabetic chronic kidney disease; E78.5 Hyperlipidemia, unspecified; K57.32 Diverticulitis of large intestine without perforation or abscess without bleeding; Z79.01 Long term (current) use of anticoagulants; I12.9 Hypertensive chronic kidney disease with stage 1 through stage 4 chronic kidney disease, or unspecified chronic kidney disease; K76.0 Fatty (change of) liver, not elsewhere classified; N18.9 Chronic kidney disease, unspecified; N32.89 Other specified disorders of bladder; I48.91 Unspecified atrial fibrillation; Z83.3 Family history of diabetes mellitus; Z90.49 Acquired absence of other specified parts of digestive tract; Z90.710 Acquired absence of both cervix and uterus
CPT/HCPCS: 36415; 74176; 74181; 76705; 80048; 80053; 80074; 80076; 81001; 82103; 82104; 82140; 82150; 82390; 82550; 82948; 82977; 83540; 83550; 83615; 83690; 83735; 84484; 85025; 85027; 86015; 86038; 86215; 86235; 86381; 86645; 86665; 86704; 87086; 93005; 96365; 96375; 99285; G0378; J0696; J1200; J2919; J3475; J3490; J7030; J1308